=== PATIENT | male | born 1990 | race American Indian/Alaskan Native ===

== ENCOUNTER 2019-05-28 10:06 | Emergency (ER) | payer SELFPAY ==
--- NOTE | 2019-05-28 10:54 | Emergency Department Report ---
ED Psych HPI - General Chief Complaint: Psych Stated Complaint: MH Time Seen by Provider: 05/28/19 10:45 Source: patient Mode of arrival: Ambulatory - History of Present Illness Initial Comments: 28-year-old -[place] male patient with history of bipolar 1 disorder, polysubstance abuse, and psychosis presents today with complaints of suicidal and homicidal ideations and wanting to detox from ecstasy. Patient states he has a plan to use a gun or knife to hurt himself and others. He denies wanting to hurt anyone in particular. States that he uses ecstasy "every once and a while". Patient states his last use of ecstasy was yesterday. Denies any other street drugs. Patient states compliance with Seroquel, however denies following with the psychiatrist. He denies any current chest pain, shortness of breath, body aches, headache, visual/auditory hallucinations, or other complaints. Patient seen here in ED 05/23/2019 for SIElida WONG Complaint: suicidal ideation -: Sudden Associated Psychiatric Symptoms: suicidal ideation, homicidal ideation, racing thoughts Quality: constant Context: recent drug abuse Treatments Prior to Arrival: none If Self Harm: admits thoughts of, has plan - Related Data Previous Rx's Medication Instructions Recorded Last Taken Type Nicotine [Habitrol] 14 mg TD QDAY #30 patch 05/23/19 Unknown Rx QUEtiapine [SEROquel] 200 mg PO HS #60 05/23/19 Unknown Rx Allergies Allergy/AdvReac Type Severity Reaction Status Date / Time No Known Allergies Allergy Verified 05/02/18 23:09 ED Review of Systems ROS: Stated complaint: MH Other details as noted in HPI Comment: All other systems reviewed and negative Gastrointestinal: as per HPI Neurological: as per HPI Psychiatric: as per HPI ED Past Medical Hx - Past Medical History Previous Medical History?: Yes Hx Psychiatric Treatment: Yes (bipolar, adhd, drug use) Hx Asthma: Yes Additional medical history: Bi polar - Surgical History Past Surgical History?: No - Social History Smoking Status: Current Every Day Smoker Substance Use Type: Alcohol, Marijuana, Other - Medications Home Medications: Home Medications Medication Instructions Recorded Confirmed Last Taken Type Nicotine [Habitrol] 14 mg TD QDAY #30 patch 05/23/19 Unknown Rx QUEtiapine [SEROquel] 200 mg PO HS #60 05/23/19 Unknown Rx ED Physical Exam - General Limitations: No Limitations General appearance: alert, in no apparent distress - Eye Eye exam: Present: normal appearance, PERRL - ENT ENT exam: Present: mucous membranes moist - Respiratory Respiratory exam: Present: normal lung sounds bilaterally. Absent: respiratory distress, wheezes, rales, rhonchi - Cardiovascular Cardiovascular Exam: Present: regular rate, normal rhythm, normal heart sounds - GI/Abdominal GI/Abdominal exam: Present: soft, tenderness - Rectal Rectal exam: Present: deferred - Extremities Exam Extremities exam: Present: normal inspection - Back Exam Back exam: Present: normal inspection - Neurological Exam Neurological exam: Present: alert, oriented X3, normal gait - Psychiatric Psychiatric exam: Present: anxious, homicidal ideation, suicidal ideation - Skin Skin exam: Present: warm ED Course Vital Signs 05/28/19 10:14 Temperature 98.4 F Pulse Rate 97 H Respiratory 18 Rate Blood Pressure 157/91 O2 Sat by Pulse 99 Oximetry ED Medical Decision Making - Lab Data Result diagrams: 05/28/19 10:54 Lab Results 05/28/19 05/28/19 05/28/19 Range/Units 10:54 10:54 10:54 Sodium 139 (137-145) mmol/L Potassium 4.2 (3.6-5.0) mmol/L Chloride 101.4 (98-107) mmol/L Carbon Dioxide 23 (22-30) mmol/L Anion Gap 19 mmol/L BUN 9 (9-20) mg/dL Creatinine 0.9 (0.8-1.5) mg/dL Estimated GFR > 60 ml/min BUN/Creatinine Ratio 10 % Glucose 102 H (75-100) mg/dL Calcium 9.7 (8.4-10.2) mg/dL Total Creatine Kinase (55-170) units/L Urine Color (Yellow) Urine Turbidity (Clear) Urine pH (5.0-7.0) Ur Specific [place] (1.003-1.030) Urine Protein (Negative) mg/dL Urine Glucose (UA) (Negative) mg/dL Urine Ketones (Negative) mg/dL Urine Blood (Negative) Urine Nitrite (Negative) Urine Bilirubin (Negative) Urine Urobilinogen (<2.0) mg/dL Ur Leukocyte Esterase (Negative) Urine WBC (Auto) (0.0-6.0) /HPF Urine RBC (Auto) (0.0-6.0) /HPF Salicylates < 0.3 L (2.8-20.0) mg/dL Urine Opiates Screen Urine Methadone Screen Acetaminophen < 5.0 L (10.0-30.0) ug/mL Ur Barbiturates Screen Ur Phencyclidine Scrn Ur Amphetamines Screen U Benzodiazepines Scrn Urine Cocaine Screen U Marijuana (THC) Screen Drugs of Abuse Note Plasma/Serum Alcohol (0-0.07) % 05/28/19 05/28/19 05/28/19 Range/Units 10:54 10:54 11:38 Sodium (137-145) mmol/L Potassium (3.6-5.0) mmol/L Chloride (98-107) mmol/L Carbon Dioxide (22-30) mmol/L Anion Gap mmol/L BUN (9-20) mg/dL Creatinine (0.8-1.5) mg/dL Estimated GFR ml/min BUN/Creatinine Ratio % Glucose (75-100) mg/dL Calcium (8.4-10.2) mg/dL Total Creatine Kinase 509 H (55-170) units/L Urine Color Colorless (Yellow) Urine Turbidity Clear (Clear) Urine pH 8.0 H (5.0-7.0) Ur Specific [place] 1.004 (1.003-1.030) Urine Protein <15 mg/dl (Negative) mg/dL Urine Glucose (UA) Neg (Negative) mg/dL Urine Ketones Neg (Negative) mg/dL Urine Blood Neg (Negative) Urine Nitrite Neg (Negative) Urine Bilirubin Neg (Negative) Urine Urobilinogen < 2.0 (<2.0) mg/dL Ur Leukocyte Esterase Neg (Negative) Urine WBC (Auto) < 1.0 (0.0-6.0) /HPF Urine RBC (Auto) < 1.0 (0.0-6.0) /HPF Salicylates (2.8-20.0) mg/dL Urine Opiates Screen Urine Methadone Screen Acetaminophen (10.0-30.0) ug/mL Ur Barbiturates Screen Ur Phencyclidine Scrn Ur Amphetamines Screen U Benzodiazepines Scrn Urine Cocaine Screen U Marijuana (THC) Screen Drugs of Abuse Note Plasma/Serum Alcohol < 0.01 (0-0.07) % 05/28/19 Range/Units 11:38 Sodium (137-145) mmol/L Potassium (3.6-5.0) mmol/L Chloride (98-107) mmol/L Carbon Dioxide (22-30) mmol/L Anion Gap mmol/L BUN (9-20) mg/dL Creatinine (0.8-1.5) mg/dL Estimated GFR ml/min BUN/Creatinine Ratio % Glucose (75-100) mg/dL Calcium (8.4-10.2) mg/dL Total Creatine Kinase (55-170) units/L Urine Color (Yellow) Urine Turbidity (Clear) Urine pH (5.0-7.0) Ur Specific [place] (1.003-1.030) Urine Protein (Negative) mg/dL Urine Glucose (UA) (Negative) mg/dL Urine Ketones (Negative) mg/dL Urine Blood (Negative) Urine Nitrite (Negative) Urine Bilirubin (Negative) Urine Urobilinogen (<2.0) mg/dL Ur Leukocyte Esterase (Negative) Urine WBC (Auto) (0.0-6.0) /HPF Urine RBC (Auto) (0.0-6.0) /HPF Salicylates (2.8-20.0) mg/dL Urine Opiates Screen Presumptive negative Urine Methadone Screen Presumptive negative Acetaminophen (10.0-30.0) ug/mL Ur Barbiturates Screen Presumptive negative Ur Phencyclidine Scrn Presumptive negative Ur Amphetamines Screen Presumptive negative U Benzodiazepines Scrn Presumptive negative Urine Cocaine Screen Presumptive positive U Marijuana (THC) Screen Presumptive negative Drugs of Abuse Note Disclamer Plasma/Serum Alcohol (0-0.07) % - Medical Decision Making Patient here for SI and HI. Patient placed on a 1013. Patient awaiting assessment from psychiatrist. Vitals WNL. Mild increase in creatinine kinase at 500, labs otherwise without acute findings. Nursing instruction place to encourage patient to orally resuscitate with water. Patient is medically stable for treatment incensed outpatient psych facility. Critical care attestation.: If time is entered above; I have spent that time in minutes in the direct care of this critically ill patient, excluding procedure time. ED Disposition Clinical Impression: Suicidal ideations, Polysubstance (excluding opioids) dependence, Homicidal ideations Disposition: DC/TX-65 PSY HOSP/PSY UNIT Is pt being admited?: No Condition: Stable Referrals: PRIMARY CARE, [Primary Care Provider] - 3-5 Days
[2019-05-28 11:32] LABS: BUN/Creatinine Ratio 10; Blood Urea Nitrogen 9 mg/dL (9-20); Calcium 9.7 mg/dL (8.4-10.2); Hemolysis Index 3
[2019-05-28 12:21] LABS: Bilirubin,Urine NEG (Negative); Blood,Urine NEG (Negative); Color,Urine Colorless (Yellow); Protein,Urine <15 mg/dL mg/dL (Negative); RBC,Urine < 1.0 /HPF (0.0-6.0); Urobilinogen,Urine < 2.0 mg/dL (<2.0); WBC,Urine < 1.0 /HPF (0.0-6.0)
[2019-05-28 12:24] LABS: Amphetamine Screen,Urine PRESUMPTIVE NEGATIVE; Benzodiazepines Screen,Urine PRESUMPTIVE NEGATIVE; Cannabinoid Screen,Urine PRESUMPTIVE NEGATIVE; Methadone Screen,Urine PRESUMPTIVE NEGATIVE; Opiate Screen,Urine PRESUMPTIVE NEGATIVE
[2019-05-28 12:43] LABS: Cocaine Screen,Urine PRESUMPTIVE POSITIVE
[2019-05-28 23:23] LABS: Basophils % (Auto) 0.6 % (0.0-1.8); Eosinophils # (Auto) 0.2 K/mm3 (0.0-0.4); Eosinophils % (Auto) 3.3 % (0.0-4.3); Hematocrit 42.5 % (35.5-45.6); Hemoglobin 14.1 gm/dl (11.8-15.2); Lymphocytes % (Auto) 26.7 % (13.4-35.0); Mean Corpuscular HGB Conc 33 % (32-34); Mean Corpuscular Volume 94 fl (84-94); Monocytes # (Auto) 1.1 K/mm3 (0.0-0.8); Monocytes % (Auto) 14.1 % (0.0-7.3); Platelet Count 309 K/mm3 (140-440); Red Blood Count 4.54 M/mm3 (3.65-5.03); Red Cell Distribution Width 13.9 % (13.2-15.2)
--- NOTE | 2019-05-29 17:19 | Consultation ---
History of Present Illness - Reason for Consult Consult date: 05/29/19 Reason for consult: psychiatric evaluation - Chief Complaint Chief complaint: "I'm suicidal and homicidal." - History of Present Psychiatric Illness Patient is a 28 year old male that presents to the emergency room after the ingestion of ecstasy. Patient has a PPHx of Bipolar Disorder with psychotic features. HE reports suicidal and homicidal ideation and says he wants to retaliate against others. He reports using cocaine and ecstasy. CK is 509. He is out of seroquel and says he wants to restart it. He attributes his mood and psychotic symptoms to drug use. Per previous record (reports no changes): Current Psychiatric Medications: Seroquel, Prozac, and Benadryl. Current dosages unknown. Past Psychiatric History: Bipolar ( Age 13), ADHD ( Age 14); More than 8 previous inpatient psychiatric hospitalizations; No outpatient psychiatrist; 2 previous suicide attempts ( cutting self with razor during incarceration); Patient has multiple incarcerations. Past Psychiatric Medication Trials: Seroquel, Zyprexa Trazodone, Depakote, Risperdal, and Zoloft. History of Trauma/Abuse: Patient denies trauma. Patient denies sexual, physical, and mental abuse. Drug/Alcohol Abuse History: Marijuana- amount/frequency- varies/daily, method- "I smoke blunts", last use- 05/19/19, first use- age 13; Esctasy?metha mphetamine- amount/frequency-varies, method - "by mouth", last use- 05/19/19, first use- age 13. Social History: 10th grade- highest level of education; Unemployed; SSI $ 745; Homeless; Single; 2 children ( 1 son, 1 daughter) Family History: Dad- " ADHD" Current: Mental Status Exam - Exam Narrative exam: Mental Status Exam: Appearance: calm Behavior: regular eye contact Speech: rapid rate and regular tone Mood: irritable Affect: congruent to mood Thought Process: tangential Thought Content: SI/HI, paranoia. denies AVH Motor Activity: ambulatory Cognition: A/O x 3 Insight: vague Judgment: poor Assessment and plan: Impression: Unspecified Mood DO with psy features. Substance Use DO (cocaine and ecstasy) DDx: Substance Induced Mood/Psychotic DO Recommendation/Plan: 1. Continue 1013. 2. Restart Seroquel 200mg po QHS mood/psychosis . Discussed possible metabolic side effects of Seroquel with the patient, he verbalized understanding. 3. Hydration Disposition: Patient will be referred to inpatient psychiatric services. Will staff with Dr. Candy Botello. Medications and Allergies Allergies Allergy/AdvReac Type Severity Reaction Status Date / Time No Known Allergies Allergy Verified 05/02/18 23:09 Home Medications Medication Instructions Recorded Confirmed Last Taken Type Nicotine [Habitrol] 14 mg TD QDAY #30 patch 05/23/19 05/28/19 Unknown Rx QUEtiapine [SEROquel] 200 mg PO HS #60 05/23/19 05/28/19 Unknown Rx Mental Status Exam - Vital signs Last Vital Signs Temp 97.5 F L 05/29/19 10:51 Pulse 77 05/29/19 10:51 Resp 18 05/29/19 01:10 BP 128/90 05/29/19 10:51 Pulse Ox 96 05/29/19 10:51 Results Result Diagrams: 05/28/19 22:50 05/28/19 10:54 Abnormal lab results 05/28/19 Range/Units 22:50 [place] % (Auto) 14.1 H (0.0-7.3) % [place] # 1.1 H (0.0-0.8) K/mm3 All other labs normal.
[2019-05-30] MEDS ORDERED: QUEtiapine 100 MG TAB PO SCH (00:49)
[2019-05-30 08:18] VITALS: BP 124/86
--- NOTE | 2019-05-30 09:05 | Progress Note ---
Subjective - Reason for Consult Consult date: 05/30/19 Reason for consult: Psychiatry Follow-up - Chief Complaint Chief complaint: "I am okay" 28 year old male that presented to the ER for substance abuse. This patient is known to me. Today the patient was calm and cooperative during the assessment. He stated that he made "bad choice" by using cocaine prior to his arrival to the ER. He stated that he will follow up with rehab services once discharged. The patient denies SI/HI's and AVH's. i Mental Status Exam - Vital signs Last Vital Signs Temp 98.3 F 05/30/19 07:00 Pulse 78 05/30/19 07:00 Resp 13 05/30/19 07:00 BP 124/86 05/30/19 07:00 Pulse Ox 97 05/30/19 07:00 - Exam Narrative exam: MSE: Appearance: calm, cooperative Behavior: regular eye contact Speech: regular rate and tone Mood: "okay" Affect: congruent to mood Thought Process: logical Thought Content: denies SI/HI's and AVH's Motor Activity: lying in bed Cognition: A/O x 3 Insight: fair Judgment: fair Assessment and Plan Impression: Unspecified Mood DO with psy features. Substance Use DO (cocaine). No overt psychosis with the patient. Today the patient was calm and cooperative during the assessment. The patient is no threat to self. DDx: Substance Induced Mood DO Recommendations/Plan: Rescind 1013. Continue Seroquel 200 mg PO HS for mood/psychosis. Discussed possible metabolic side effects of Seroquel with the patient, he verbalized understanding. he verbalized understanding. Discussed the importance to abstain from recreational drug use with the patient, he verbalized understanding. Dipso: The patient can follow up with [facility] for outpatient psy/rehab services. Will staff with Dr Candy Botello.
--- NOTE | 2019-05-30 10:51 | Emergency Department Report ---
Blank Doc - Documentation Documentation: I was asked by the psychiatric team to provide discharge paperwork for this pat ient after they decided to rescind the 1013. I spoke with the patient who does deny any suicidal or homicidal ideations. At the time of my examination/conversation, the patient is awake, oriented, calm and appropriate. He has been provided outpatient psychiatric referrals and a prescription for his Seroquel for the next 2 weeks. He has been instructed to return to the emergency Department with any worsening of his symptoms, thoughts of harming himself or others, or with any acute distress.
== END 2019-05-30 11:15 | disposition home or self-care (01) ==
LOC: EDBD → EEVIPCON 10:06 → ED 10:06 → MERGE 10:06 → ED 05-30 11:15
DX: F39 Unspecified mood [affective] disorder (principal); R45.851 Suicidal ideations; R45.850 Homicidal ideations; F31.9 Bipolar disorder, unspecified; F17.200 Nicotine dependence, unspecified, uncomplicated; F12.10 Cannabis abuse, uncomplicated
CPT/HCPCS: 36415; 80048; 80307; 80320; 81001; 82550; 85025; G0480

== ENCOUNTER 2019-06-18 01:24 | Emergency (ER) | payer SELFPAY ==
--- NOTE | 2019-06-18 02:59 | Emergency Department Report ---
ED Psych HPI - General Chief Complaint: Psych Stated Complaint: SUICIDAL THOUGHTS Time Seen by Provider: 06/18/19 02:06 Source: patient Mode of arrival: Ambulatory - History of Present Illness Initial Comments: 28-year-old male, history of bipolar disorder, presents to ED with report of suicidal or homicidal ideations. Patient states he is not having any homicidal ideations against anyone in particular. As far as suicidal ideations, patient reports plan to overdose or cut himself. Patient reports alcohol use, denies drug use. States he is currently not taking his psychiatric medications. MD Complaint: suicidal ideation -: days(s) (2) Associated Psychiatric Symptoms: suicidal ideation, homicidal ideation History of same: Yes Quality: constant Improves With: none Worsens With: none Context: not taking psychiatric Associated Symptoms: denies other symptoms Treatments Prior to Arrival: none If Self Harm: has plan - Related Data Previous Rx's Medication Instructions Recorded Last Taken Type Nicotine [Habitrol] 14 mg TD QDAY #30 patch 05/23/19 Unknown Rx QUEtiapine [SEROquel] 200 mg PO HS #60 05/23/19 Unknown Rx Allergies Allergy/AdvReac Type Severity Reaction Status Date / Time No Known Allergies Allergy Unverified 05/30/19 07:49 ED Review of Systems ROS: Stated complaint: SUICIDAL THOUGHTS Other details as noted in HPI Comment: All other systems reviewed and negative Psychiatric: homicidal thoughts, suicidal thoughts ED Past Medical Hx - Past Medical History Previous Medical History?: Yes Hx Psychiatric Treatment: Yes (bipolar, adhd, drug use) Hx Asthma: Yes Additional medical history: Bi polar - Surgical History Past Surgical History?: No - Social History Smoking Status: Current Every Day Smoker Substance Use Type: Marijuana - Medications Home Medications: Home Medications Medication Instructions Recorded Confirmed Last Taken Type Nicotine [Habitrol] 14 mg TD QDAY #30 patch 05/23/19 06/18/19 Unknown Rx QUEtiapine [SEROquel] 200 mg PO HS #60 05/23/19 06/18/19 Unknown Rx ED Physical Exam - General Limitations: No Limitations General appearance: alert, in no apparent distress - Head Head exam: Present: atraumatic, normocephalic - Eye Eye exam: Present: normal appearance - ENT ENT exam: Present: mucous membranes moist - Neck Neck exam: Present: normal inspection - Respiratory Respiratory exam: Present: normal lung sounds bilaterally. Absent: respiratory distress - Cardiovascular Cardiovascular Exam: Present: regular rate, normal rhythm - GI/Abdominal GI/Abdominal exam: Absent: distended - Extremities Exam Extremities exam: Present: normal inspection - Neurological Exam Neurological exam: Present: alert, oriented X3 - Psychiatric Psychiatric exam: Present: normal affect, normal mood - Skin Skin exam: Present: warm, dry, intact, normal color ED Course Vital Signs 06/18/19 06/18/19 06/18/19 01:45 08:23 14:33 Temperature 98.3 F 98.4 F 97.4 F L Pulse Rate 88 88 84 Respiratory 20 18 16 Rate Blood Pressure 134/94 Blood Pressure 123/77 116/87 [Right] O2 Sat by Pulse 97 99 100 Oximetry 06/18/19 06/19/19 06/19/19 19:35 07:00 13:00 Temperature 98.4 F 98.0 F 97.8 F Pulse Rate 87 87 89 Respiratory 18 18 18 Rate Blood Pressure Blood Pressure 135/89 139/62 117/82 [Right] O2 Sat by Pulse 98 96 Oximetry 06/19/19 06/19/19 06/19/19 13:10 19:15 21:29 Temperature 97.8 F 98.6 F Pulse Rate 89 83 Respiratory 18 18 18 Rate Blood Pressure Blood Pressure 117/82 112/82 [Right] O2 Sat by Pulse 96 96 Oximetry 06/20/19 06/20/19 02:11 08:34 Temperature 97.9 F 98.1 F Pulse Rate 76 90 Respiratory 18 Rate Blood Pressure Blood Pressure 118/83 134/90 [Right] O2 Sat by Pulse 98 96 Oximetry ED Medical Decision Making - Lab Data Result diagrams: 06/18/19 02:11 06/18/19 02:11 - Medical Decision Making 28-year-old male presents to ED with suicidal and homicidal ideations. Patient placed on a 1013. Labs are unremarkable. Patient is medically clear for mental health evaluation. Will dispo per psych - Differential Diagnosis bipolar, suicidal ideations Critical care attestation.: If time is entered above; I have spent that time in minutes in the direct care of this critically ill patient, excluding procedure time. ED Disposition Clinical Impression: Bipolar disorder, Alcohol intoxication Disposition: DC-01 TO HOME OR SELFCARE Is pt being admited?: No Condition: Stable Instructions: Bipolar Disorder (ED) Referrals: [facility] [Provider Group] - 3-5 Days [facility] [Outside] - 24 Hours
[2019-06-18 03:20] LABS: Basophils # (Auto) 0.1 K/mm3 (0.0-0.1); Basophils % (Auto) 1.2 % (0.0-1.8); Eosinophils # (Auto) 0.2 K/mm3 (0.0-0.4); Eosinophils % (Auto) 1.8 % (0.0-4.3); Hematocrit 46.2 % (35.5-45.6); Hemoglobin 15.3 gm/dl (11.8-15.2); Lymphocytes # (Auto) 1.8 K/mm3 (1.2-5.4); Lymphocytes % (Auto) 21.9 % (13.4-35.0); Mean Corpuscular HGB Conc 33 % (32-34); Mean Corpuscular Volume 95 fl (84-94); Monocytes # (Auto) 0.9 K/mm3 (0.0-0.8); Monocytes % (Auto) 10.3 % (0.0-7.3); Platelet Count 235 K/mm3 (140-440); Red Blood Count 4.89 M/mm3 (3.65-5.03); Red Cell Distribution Width 13.8 % (13.2-15.2)
[2019-06-18 03:33] LABS: BUN/Creatinine Ratio 9; Blood Urea Nitrogen 9 mg/dL (9-20); Calcium 9.6 mg/dL (8.4-10.2); Hemolysis Index 6
[2019-06-18 05:40] LABS: Bilirubin,Urine NEG (Negative); Blood,Urine NEG (Negative); Color,Urine Straw (Yellow); Hyaline Casts,Urine 1 /LPF; Protein,Urine <15 mg/dL mg/dL (Negative); Urobilinogen,Urine < 2.0 mg/dL (<2.0); WBC,Urine < 1.0 /HPF (0.0-6.0)
[2019-06-18 05:47] LABS: Amphetamine Screen,Urine PRESUMPTIVE NEGATIVE; Benzodiazepines Screen,Urine PRESUMPTIVE NEGATIVE; Cannabinoid Screen,Urine PRESUMPTIVE NEGATIVE; Cocaine Screen,Urine PRESUMPTIVE NEGATIVE; Methadone Screen,Urine PRESUMPTIVE NEGATIVE; Opiate Screen,Urine PRESUMPTIVE NEGATIVE
--- NOTE | 2019-06-18 21:08 | Consultation ---
History of Present Illness - Reason for Consult Consult date: 06/18/19 Reason for consult: psychiatric evaluation - History of Present Psychiatric Illness Patient is a 28 year old male that presents to the emergency room stating he is suicidal with a plan to overdose or cut himself. His alcohol level was 0.12. Patient has a PPHx of Bipolar Disorder with psychotic features. We discussed his repeated visits. He reports SSI has started and has an appo intment on Thursday. He says he is trying to find a place to stay until Thursday. He says he does not want to stay past Thursday am. Per previous record (reports no changes): Current Psychiatric Medications: Seroquel, Prozac, and Benadryl. Current dosages unknown. Past Psychiatric History: Bipolar ( Age 13), ADHD ( Age 14); More than 8 previous inpatient psychiatric hospitalizations; No outpatient psychiatrist; 2 previous suicide attempts ( cutting self with razor during incarceration); Patient has multiple incarcerations. Past Psychiatric Medication Trials: Seroquel, Zyprexa Trazodone, Depakote, Risperdal, and Zoloft. History of Trauma/Abuse: Patient denies trauma. Patient denies sexual, physical, and mental abuse. Drug/Alcohol Abuse History: Marijuana- amount/frequency- varies/daily, method- "I smoke blunts", last use- 05/19/19, first use- age 13; Esctasy?met hamphetamine- amount/frequency-varies, method - "by mouth", last use- 05/19/19, first use- age 13. Social History: 10th grade- highest level of education; Unemployed; SSI $ 745; Homeless; Single; 2 children ( 1 son, 1 daughter) Family History: Dad- " ADHD" Current: Mental Status Exam - Exam Narrative exam: Mental Status Exam: Appearance: calm Behavior: regular eye contact Speech: rapid rate and regular tone Mood: irritable Affect: congruent to mood Thought Process: tangential Thought Content: SI/HI, paranoia. denies AVH Motor Activity: ambulatory Cognition: A/O x 3 Insight: vague Judgment: poor Assessment and plan: Impression: Unspecified Mood DO with psy features. Substance Use DO (cocaine and ecstasy) DDx: Substance Induced Mood/Psychotic DO Recommendation/Plan: 1. Continue 1013. 2. Restart Seroquel 200mg po QHS mood/psychosis . Discussed possible metabolic side effects of Seroquel with the patient, he verbalized understanding. Disposition: reassess in 24 [address] staff with Dr[address] Canyd Botello. Medications and Allergies Allergies Allergy/AdvReac Type Severity Reaction Status Date / Time No Known Allergies Allergy Unverified 05/30/19 07:49 Home Medications Medication Instructions Recorded Confirmed Last Taken Type Nicotine [Habitrol] 14 mg TD QDAY #30 patch 05/23/19 06/18/19 Unknown Rx QUEtiapine [SEROquel] 200 mg PO HS #60 05/23/19 06/18/19 Unknown Rx Mental Status Exam - Vital signs Last Vital Signs Temp 97.4 F L 06/18/19 14:33 Pulse 84 06/18/19 14:33 Resp 16 06/18/19 14:33 BP 116/87 06/18/19 14:33 Pulse Ox 100 06/18/19 14:33 Results Result Diagrams: 06/18/19 02:11 06/18/19 02:11 Abnormal lab results 06/18/19 06/18/19 06/18/19 Range/Units 02:11 02:11 02:11 Hgb (11.8-15.2) gm/dl Hct (35.5-45.6) % MCV (84-94) fl [place] % (Auto) (0.0-7.3) % [place] # (0.0-0.8) K/mm3 Salicylates < 0.3 L (2.8-20.0) mg/dL Acetaminophen < 5.0 L (10.0-30.0) ug/mL Plasma/Serum Alcohol 0.12 H (0-0.07) % 06/18/19 Range/Units 02:11 Hgb 15.3 H (11.8-15.2) gm/dl Hct 46.2 H (35.5-45.6) % MCV 95 H (84-94) fl [place] % (Auto) 10.3 H (0.0-7.3) % [place] # 0.9 H (0.0-0.8) K/mm3 Salicylates (2.8-20.0) mg/dL Acetaminophen (10.0-30.0) ug/mL Plasma/Serum Alcohol (0-0.07) % All other labs normal.
[2019-06-18] MEDS ORDERED: QUEtiapine 200 MG TAB ONE (21:39)
[2019-06-18] MEDS: QUEtiapine 200 MG TAB PO SCH (21:58)
--- NOTE | 2019-06-19 21:11 | Progress Note ---
Subjective - Reason for Consult Consult date: 06/19/19 Reason for consult: follow up - Chief Complaint Chief complaint: Patient is a 28 year old male that presented to the emergency room stating he is suicidal with a plan to overdose or cut himself. His alcohol level was 0.12. Patient has a PPHx of Bipolar Disorder with psychotic features. We discussed his repeated visits. He reports SSI has started and has an appointment on Thursday. He says he is trying to find a place to stay until Thursday. He says he does not want to stay past Thursday am. He denies suicidal or homicidal ideation. He says he is trying to get himself straight and does not plan to hurt himself. Current: Mental Status Exam - Exam Narrative exam: Mental Status Exam: Appearance: calm Behavior: regular eye contact Speech: rapid rate and regular tone Mood: irritable Affect: congruent to mood Thought Process: tangential Thought Content: denies SI/HI, paranoia. denies AVH Motor Activity: ambulatory Cognition: A/O x 3 Insight: vague Judgment: poor Assessment and plan: Impression: Unspecified Mood DO with psy features. Substance Use DO (cocaine and ecstasy) DDx: Substance Induced Mood/Psychotic DO Likely he reports SI on arrival for secondary gain. Recommendation/Plan: 1. Continue 1013. 2. continue Seroquel 200mg po QHS mood/psychosis . Discussed possible metabolic side effects of Seroquel with the patient, he verbalized understanding. Disposition: reassess in 24 hours and will rescind if appropriate. Will staff with Dr. Candy Botello. Mental Status Exam - Vital signs Last Vital Signs Temp 98.6 F 06/19/19 19:15 Pulse 83 06/19/19 19:15 Resp 18 06/19/19 19:15 BP 112/82 06/19/19 19:15 Pulse Ox 96 06/19/19 19:15
[2019-06-19] MEDS: QUEtiapine 200 MG TAB PO SCH (22:49)
[2019-06-20 08:34] VITALS: BP 134/90
--- NOTE | 2019-06-20 08:47 | Progress Note ---
Subjective - Reason for Consult Consult date: 06/20/19 Reason for consult: Psychiatry Follow-up - Chief Complaint Chief complaint: "I am good" 28 year old male that presented to the emergency room stating he is suicidal with a plan to overdose or cut himself. This patient is known to me. He stated that he is well and want to leave today. He stated that he was in his "feelings" when he arrived to the ER. He stated that he will follow up rehab services once discharged. He denies SI/HI's and AVH's. He denies any side effects from his medication. Mental Status Exam - Vital signs Last Vital Signs Temp 98.1 F 06/20/19 08:34 Pulse 90 06/20/19 08:34 Resp 18 06/20/19 02:11 BP 134/90 06/20/19 08:34 Pulse Ox 96 06/20/19 08:34 - Exam Narrative exam: MSE: Appearance: calm, cooperative Behavior: regular eye contact Speech: regular rate and tone Mood: "okay" Affect: congruent to mood Thought Process: linear Thought Content: denies SI/HI's and AVH's Motor Activity: lying in bed Cognition: A/O x 3 Insight: fair Judgment: fair Assessment and Plan Impression: Unspecified Mood DO. Alcohol Intoxication on arrival to the ER. Today the patient was calm and cooperative during the assessment. The patient is no threat to self. No acute withdrawals noted (etoh). DDx: Alcohol Induced Mood DO Recommendations/Plan: Rescind 1013. Continue Seroquel 200 mg PO HS for mood/psychosis. Discussed possible metabolic side effects of Seroquel with the patient, he verbalized understanding. Discussed the importance to abstain from excessive alcohol consumption (etoh), he verbalized understanding. Dipso: The patient can follow up with [facility] for outpatient psy/rehab services. Staffed with Dr Candy Botello.
== END 2019-06-20 11:50 | disposition home or self-care (01) ==
LOC: ED 01:24
DX: F31.9 Bipolar disorder, unspecified (principal); R45.851 Suicidal ideations; R45.850 Homicidal ideations; J45.909 Unspecified asthma, uncomplicated; F17.200 Nicotine dependence, unspecified, uncomplicated; F12.10 Cannabis abuse, uncomplicated
CPT/HCPCS: 36415; 80048; 80307; 80320; 81001; 85025; G0480

== ENCOUNTER 2020-04-05 02:45 | Emergency (ER) | payer MEDICAID ==
[2020-04-05 05:23] LABS: Basophils # (Auto) 0.1 K/mm3 (0.0-0.1); Basophils % (Auto) 0.8 % (0.0-1.8); Eosinophils % (Auto) 0.1 % (0.0-4.3); Hematocrit 41.2 % (35.5-45.6); Hemoglobin 14.4 gm/dl (11.8-15.2); Lymphocytes # (Auto) 0.9 K/mm3 (1.2-5.4); Lymphocytes % (Auto) 7.6 % (13.4-35.0); Mean Corpuscular HGB Conc 35 % (32-34); Mean Corpuscular Volume 92 fl (84-94); Monocytes # (Auto) 1.1 K/mm3 (0.0-0.8); Monocytes % (Auto) 9.3 % (0.0-7.3); Platelet Count 281 K/mm3 (140-440); Red Blood Count 4.49 M/mm3 (3.65-5.03); Red Cell Distribution Width 14.1 % (13.2-15.2)
[2020-04-05 05:38] LABS: BUN/Creatinine Ratio 11; Blood Urea Nitrogen 17 mg/dL (9-20); Calcium 10.7 mg/dL (8.4-10.2); Hemolysis Index 6
--- NOTE | 2020-04-05 07:05 | Emergency Department Report ---
<KARAN CONLEY - Last Filed: 04/06/20 08:22> ED Psych HPI - General Chief Complaint: Psych Stated Complaint: MH EVAL/SUICIDAL Time Seen by Provider: 04/05/20 06:52 - Related Data Previous Rx's Medication Instructions Recorded Last Taken Type Nicotine [Habitrol] 14 mg TD QDAY #30 patch 05/23/19 Unknown Rx QUEtiapine [SEROquel] 200 mg PO HS #60 05/23/19 Unknown Rx OLANzapine [ZyPREXA] 10 mg PO DAILY #30 tablet 03/18/20 Unknown Rx Valproic Acid [Depakene] 500 mg PO BID #60 capsule 04/09/20 Unknown Rx Allergies Allergy/AdvReac Type Severity Reaction Status Date / Time No Known Allergies Allergy Unverified 05/30/19 07:49 ED Past Medical Hx - Medications Home Medications: Home Medications Medication Instructions Recorded Confirmed Last Taken Type Nicotine [Habitrol] 14 mg TD QDAY #30 patch 05/23/19 06/18/19 Unknown Rx QUEtiapine [SEROquel] 200 mg PO HS #60 05/23/19 06/18/19 Unknown Rx OLANzapine [ZyPREXA] 10 mg PO DAILY #30 tablet 03/18/20 Unknown Rx Valproic Acid [Depakene] 500 mg PO BID #60 capsule 04/09/20 Unknown Rx ED Course - Reevaluation(s) Reevaluation #1: 04/06/20 08:22 [id number] evaluation is performed. Patient required initiation of seclusion for aggressive behavior. The patient is agitated, and verbally belligerent, does not respond to verbal de-escalation techniques, or show of force. As needed haloperidol and Ativan are ordered. Upon my initial evaluation, the patient is resting comfortably, speaking in full sentences, moving 4 extremities, and protecting his airway. Seclusion orders are initiated, as needed medications ordered, pending psychiatric placement. ED Medical Decision Making - Lab Data Result diagrams: 04/05/20 05:04 04/05/20 05:04 ED Disposition Clinical Impression: Bipolar disorder, Psychosis, Polysubstance (excluding opioids) dependence Disposition: DC-01 TO HOME OR SELFCARE Condition: Stable Additional Instructions: Professional and Agency Contacts To help [facility](23/02) [place] Crisis Line: Suicide Prevention Line: Crisis Text Line: Text START to [phone] Emergency: 911 Outpatient [facility] Resources: LAVINIA: [facility] [address] [place], [place] [address] [place]EDD[place]: [facility] - [address] [place] [address] Thursday thru Thursday - 8am - 5pm RAUL: [facility] Address: [address] [place] [address] Thursday thru Thursday- 7am-2pm [facility] Address: [address] [place] [address] Thursday thru Thursday: 8:30AM-5PM Prescriptions: Valproic Acid [Depakene] 500 mg PO BID #60 capsule Referrals: PRIMARY CARE, [Primary Care Provider] - 3-5 Days <SYLVESTER LEIVA - Last Filed: 04/09/20 16:06> ED Psych HPI - General Source: patient Mode of arrival: Ambulatory Limitations: No Limitations - History of Present Illness Initial Comments: CC: "I feeling homicidal, suicidal. I feel like a sniper is out to get me. HPI: Mr. Burton is a 29 yo male with hx of bipolar disorder, ADHD, polysubstance abuse who presents with "suicidal" and "homicidal" thoughts. He states that "a sniper is out to get me". He informed triage nurse that he planned to use a knife or gun to hurt people and himself. He has not taking mediction to address mental health in quite some time. Patient was evaluated for similar concerns two weeks ago in this ER. He was discharged with recommendations for outpatient treatment and prescription for medication. Previous documentation in EMR documents that patient has hx of schizophrenia. Complaint: suicidal ideation, other (homicidal, delusion that sniper is "out to get me") -: Gradual, week(s) (several weeks) Associated Psychiatric Symptoms: suicidal ideation, homicidal ideation, delusions History of same: Yes Quality: constant Improves With: medication Context: recent drug abuse, not taking psychiatric Associated Symptoms: denies other symptoms Treatments Prior to Arrival: none If Self Harm: admits thoughts of, has plan ED Review of Systems ROS: Stated complaint: MH EVAL/SUICIDAL Other details as noted in HPI Comment: All other systems reviewed and negative Constitutional: denies: fever, malaise Respiratory: denies: cough, shortness of breath Cardiovascular: denies: chest pain Gastrointestinal: denies: abdominal pain, nausea, vomiting Psychiatric: homicidal thoughts, suicidal thoughts ED Past Medical Hx - Past Medical History Previous Medical History?: Yes Hx Psychiatric Treatment: Yes (bipolar, adhd, drug use) Hx Asthma: Yes Additional medical history: Bi polar - Surgical History Past Surgical History?: No - Social History Smoking Status: Never Smoker Substance Use Type: None ED Physical Exam - General Limitations: Altered Mental Status General appearance: alert, in no apparent distress, other (flat, calm, cooperative) - Head Head exam: Present: atraumatic, normocephalic - Eye Eye exam: Present: normal appearance - ENT ENT exam: Present: mucous membranes moist - Neck Neck exam: Present: normal inspection, full ROM - Respiratory Respiratory exam: Present: normal lung sounds bilaterally. Absent: respiratory distress, wheezes, rales, rhonchi - Cardiovascular Cardiovascular Exam: Present: regular rate, normal rhythm, normal heart sounds. Absent: systolic murmur, diastolic murmur, rubs, gallop - GI/Abdominal GI/Abdominal exam: Present: soft, normal bowel sounds. Absent: distended, tenderness, guarding, rebound - Extremities Exam Extremities exam: Present: normal inspection - Neurological Exam Neurological exam: Present: alert, oriented X3 - Psychiatric Psychiatric exam: Present: depressed, flat affect, homicidal ideation - Skin Skin exam: Present: warm, dry, intact, normal color. Absent: rash ED Course Vital Signs 04/05/20 04/05/20 04/05/20 04:43 05:07 22:05 Temperature 98.7 F 98.1 F 97.8 F Pulse Rate 128 H 112 H 83 Respiratory 20 19 18 Rate Blood Pressure 173/99 Blood Pressure 148/96 106/56 [Left] O2 Sat by Pulse 94 95 97 Oximetry 04/06/20 04/07/20 04/07/20 20:08 01:00 19:26 Temperature 97.9 F 98.6 F Pulse Rate 81 76 Respiratory 20 16 18 Rate Blood Pressure Blood Pressure 100/58 110/59 [Left] O2 Sat by Pulse 99 98 Oximetry 04/07/20 04/08/20 04/09/20 19:44 19:00 10:25 Temperature 98.0 F 97.4 F L 98.2 F Pulse Rate 74 100 H 76 Respiratory 18 18 18 Rate Blood Pressure Blood Pressure 132/86 137/85 134/77 [Left] O2 Sat by Pulse 98 99 96 Oximetry ED Medical Decision Making - Lab Data Result diagrams: 04/08/20 18:20 04/05/20 05:04 Laboratory Results - last 24 hr 04/05/20 04/05/20 04/05/20 05:04 05:04 05:04 WBC RBC Hgb Hct MCV MCH MCHC RDW Plt Count Lymph % (Auto) [place] % (Auto) Eos % (Auto) Baso % (Auto) Lymph # [place] # Eos # Baso # Seg Neutrophils % Seg Neutrophils # Sodium 139 Potassium 4.3 Chloride 98.4 Carbon Dioxide 20 L Anion Gap 25 BUN 17 Creatinine 1.6 H Estimated GFR > 60 BUN/Creatinine Ratio 11 Glucose 109 H Calcium 10.7 H Salicylates < 0.3 L Acetaminophen 5.0 L Plasma/Serum Alcohol 04/05/20 04/05/20 05:04 05:04 WBC 12.3 H RBC 4.49 Hgb 14.4 Hct 41.2 MCV 92 MCH 32 MCHC 35 H RDW 14.1 Plt Count 281 Lymph % (Auto) 7.6 L [place] % (Auto) 9.3 H Eos % (Auto) 0.1 Baso % (Auto) 0.8 Lymph # 0.9 L [place] # 1.1 H Eos # 0.0 Baso # 0.1 Seg Neutrophils % 82.2 H Seg Neutrophils # 10.1 H Sodium Potassium Chloride Carbon Dioxide Anion Gap BUN Creatinine Estimated GFR BUN/Creatinine Ratio Glucose Calcium Salicylates Acetaminophen Plasma/Serum Alcohol < 0.01 - Medical Decision Making Mr. Burton has hx of bipolar disorder, ADHD, polysubstance abuse. Previous documentation in EMR suggests patient has paranoid schizophrenia. I suspect patient does have this diagnosis or possibly drug-induced psychosis. Currently he is calm, cooperative with flat affect. He has poor insight. He has not been compliant with outpatient therapy. He is currently not able to ensure his safety or the safety of others. Involuntary hold indicated. I have completed 1013 form. Mr. Burton is medically clear for psychiatric care. I have reviewed the labs obtained. No indication of acute medical condition which needs treatment or stablization beyond current mental health condition. After psychiatric care provided in the emergency department over the course of 4 days, patient is now stable for discharge after extensive care was provided by our psychiatric team. Patient was provided outpatient resources. Critical care attestation.: If time is entered above; I have spent that time in minutes in the direct care of this critically ill patient, excluding procedure time. ED Disposition Is pt being admited?: No Does the pt Need Aspirin: No
[2020-04-05 07:25] LABS: Bilirubin,Urine NEG (Negative); Blood,Urine NEG (Negative); Color,Urine Yellow (Yellow); Hyaline Casts,Urine 24 /LPF; Mucus,Urine 1+ /HPF
[2020-04-05 08:02] LABS: Benzodiazepines Screen,Urine Negative; Cannabinoid Screen,Urine Negative; Methadone Screen,Urine Negative; Opiate Screen,Urine Negative
[2020-04-05 08:18] LABS: Amphetamine Screen,Urine Positive; Cocaine Screen,Urine Positive
[2020-04-05] MEDS ORDERED: ZIPRASIDONE MESYLATE 20 MG VIAL IM ONE (16:18)
[2020-04-05 19:20] LABS: Hepatitis B Surface Antigen Non-Reactive (Negative); Hepatitis C Virus Antibody Non-Reactive (NonReactive)
[2020-04-06] MEDS ORDERED: HALOPERIDOL LACTATE 5 MG/1 ML INJ IM PRN (08:18)
[2020-04-06] MEDS ORDERED: LORazepam 2 MG/ML VIAL IM PRN (08:18)
--- NOTE | 2020-04-06 09:26 | Consultation ---
History of Present Illness - Reason for Consult Consult date: 04/06/20 Reason for consult: MHE Requesting physician: SYLVESTER LEIVA - Chief Complaint Chief complaint: SI - History of Present Psychiatric Illness Per ED Provider: HPI: Mr. Burton is a 29 yo male with hx of bipolar disorder, ADHD, polysubstance abuse who presents with "suicidal" and "homicidal" thoughts. He states that "a sniper is out to get me". He informed triage nurse that he planned to use a knife or gun to hurt people and himself. He has not taking mediction to address mental health in quite some time. Patient was evaluated for similar concerns two weeks ago in this ER. He was discharged with recommendations for outpatient treatment and prescription for medication. Previous documentation in EMR documents that patient has hx of schizophrenia. PSYCH HPI Patient is a single, unemployed currently on disability 29-year-old - [place] female with past psychiatric history of bipolar and ADHD currently resides with family who presented to the ED with chief complaint of suicidal and homicidal thoughts. Patient reports he wants to go and does not want to deal with the staff here, says they placed him in this room for no reason. Patient states he needs to leave the facility because he has morning that he wants to give his brother who has been in half-way for over a year now, and he wants to go [facility] to visit because he has not seen them for a while and they are currently with the mom. Patient reported he has a GF that has been stalking him for 6 years now and every time he tried a catch up to her, she disappears. She reports what he needs right now is a psychiatrist will help him manage all his medications and also draws blood so that they can tell him if he is taking his medications or not. Patient reported normally takes Zyprexa but has not been taking the medication for a while. Denies hearing any voices at this moment. Endorses to using cocaine recently PAST PSYCHIATRIC HISTORY Diagnoses: Bipolar ADHD Suicide attempts or Self-harm behavior: None reported Prior psychiatric hospitalizations: [facility] Substance Abuse history: Cocaine recently Previous psychiatric medications tried: Zypreza Outpatient treatment: n/a PAST MEDICAL HISTORY: none reported Family Psychiatric History: None reported or documented SOCIAL HISTORY Marital Status: single Living Arrangements: with family Employment Status: disabled Access to guns/weapons: none reported Education: 10th History of Abuse: none reported Legal History: none reported REVIEW OF SYSTEMS Constitutional: Negative for weight loss ENT: Negative for stridor Respiratory: Negative for cough or hemoptysis All other systems reviewed and are negative MENTAL STATUS EXAMINATION General Appearance and Behavior: Age appropriate, good hygiene, wearing a ppropriate clothes, lying in bed, poor eye contact, cooperativeuncooperative irritable with questioning. Cooperation: Participating/engaged Psychomotor Behavior: unremarkable and within normal limits Mood: "not alright" Affect and affective range: irritable Thought Process: Illogical Thought Content: Obsessions, Flight of ideas, Illogical, Grandiose Speech: Normal volume, Regular rate and rhythm Intellectual Functioning: Average Suicidal Ideation: Denies SI Homicidal Ideation: Denies HI Impulse Control: Impaired Insight and Judgment: Limited insight and judgment Memory: Normal Attention: Divided attention impaired Orientation: Alert, oriented Assessment and Plan - Psychiatric problem (1) Substance use disorder Current Visit: Yes Status: Acute (2) Bipolar 1 disorder with moderate tien Current Visit: Yes Status: Acute Treatment Plan MEDICATIONS: Started on Zypreza and Valproate Risks, benefits and alternatives of medications discussed with the patient, questions answered and consent obtained from patient. PSYCHOTHERAPY: Supportive psychotherapy provided MEDICAL: Per primary team DELIRIUM PRECAUTIONS: Please re-orient patient frequently, keep lights on during the day, and minimize benzodiazepines and opiates as these medications could worsen patient's confusion. JAVA GROOVY DEVELOPER: DISPOSITION: Do Recommend acute inpatient psychiatric hospitalization at this time LEGAL STATUS: 1013 FOLLOW-UP: Will follow Thank you for the consult. Please contact with any questions and/or concerns. Medications and Allergies Allergies Allergy/AdvReac Type Severity Reaction Status Date / Time No Known Allergies Allergy Unverified 05/30/19 07:49 Home Medications Medication Instructions Recorded Confirmed Last Taken Type Nicotine [Habitrol] 14 mg TD QDAY #30 patch 05/23/19 06/18/19 Unknown Rx QUEtiapine [SEROquel] 200 mg PO HS #60 05/23/19 06/18/19 Unknown Rx OLANzapine [ZyPREXA] 10 mg PO DAILY #30 tablet 03/18/20 Unknown Rx Active Meds: Active Medications Haloperidol Lactate (Haldol) 5 mg IM Q6HR PRN PRN Reason: Agitation Lorazepam (Ativan) 2 mg IM Q4HR PRN PRN Reason: Agitation Mental Status Exam - Vital signs Last Vital Signs Temp 97.8 F 04/05/20 22:05 Pulse 83 04/05/20 22:05 Resp 18 04/05/20 22:05 BP 106/56 04/05/20 22:05 Pulse Ox 97 04/05/20 22:05 Results Result Diagrams: 04/05/20 05:04 04/05/20 05:04 All other labs normal. Assessment and Plan - Psychiatric problem (1) Substance use disorder Current Visit: Yes Status: Acute (2) Bipolar 1 disorder with moderate tien Current Visit: Yes Status: Acute
[2020-04-06] MEDS: VALPROIC ACID 250 MG CAP PO SCH (21:34)
[2020-04-07] MEDS: VALPROIC ACID 250 MG CAP PO SCH ×2 (09:41→21:46)
--- NOTE | 2020-04-07 10:23 | Progress Note ---
Subjective - Reason for Consult Consult date: 04/07/20 Reason for consult: MHE Requesting physician: SYLVESTER LEIVA - Chief Complaint Chief complaint: Psych Progress Patient seen in seclusion room, this AM. He says he does not feel like talking this AM, because he feels ready to go. I walked away and couple of minutes later, patient started banging on room window, saying he would like to talk. REVIEW OF SYSTEMS Constitutional: Negative for weight loss ENT: Negative for stridor Respiratory: Negative for cough or hemoptysis All other systems reviewed and are negative MENTAL STATUS EXAMINATION General Appearance and Behavior: Age appropriate, good hygiene, wearing appropriate clothes, lying in bed, poor eye contact, cooperativeuncooperative irritable with questioning. Cooperation: Participating/engaged Psychomotor Behavior: unremarkable and within normal limits Mood: "not alright" Affect and affective range: irritable Thought Process: Illogical Thought Content: Obsessions, Flight of ideas, Illogical, Grandiose Speech: Normal volume, Regular rate and rhythm Intellectual Functioning: Average Suicidal Ideation: Denies SI Homicidal Ideation: Denies HI Impulse Control: Impaired Insight and Judgment: Limited insight and judgment Memory: Normal Attention: Divided attention impaired Orientation: Alert, oriented Assessment and Plan - Psychiatric problem (1) Substance use disorder Current Visit: Yes Status: Acute (2) Bipolar 1 disorder with moderate tien Current Visit: Yes Status: Acute Treatment Plan MEDICATIONS: Started on Zypreza and Valproate Risks, benefits and alternatives of medications discussed with the patient, questions answered and consent obtained from patient. PSYCHOTHERAPY: Supportive psychotherapy provided MEDICAL: Per primary team DELIRIUM PRECAUTIONS: Please re-orient patient frequently, keep lights on during the day, and minimize benzodiazepines and opiates as these medications could worsen patient's confusion. DUE DILIGENCE COORDINATOR: DISPOSITION: Do Recommend acute inpatient psychiatric hospitalization at this time LEGAL STATUS: 1013 FOLLOW-UP: Will follow Thank you for the consult. Please contact with any questions and/or concerns. Mental Status Exam - Vital signs Last Vital Signs Temp 98.6 F 04/07/20 01:00 Pulse 76 04/07/20 01:00 Resp 16 04/07/20 01:00 BP 110/59 04/07/20 01:00 Pulse Ox 98 04/07/20 01:00 Assessment and Plan - Patient Problems (1) Substance use disorder Current Visit: Yes Status: Acute (2) Bipolar 1 disorder with moderate tien Current Visit: Yes Status: Acute
[2020-04-07] MEDS ORDERED: ACETAMINOPHEN 325 MG TAB PO ONE (21:35)
--- NOTE | 2020-04-08 08:09 | Progress Note ---
Subjective - Reason for Consult Consult date: 04/08/20 Reason for consult: MHE Requesting physician: ROMAN CÁRDENAS - Chief Complaint Chief complaint: ED Nurse: Pt leaves room raising voice at staff to bring him some food. Pt has already been given meal tray and snack bag. Pt began yelling. Security called. Psych Progress Patient seen in seclusion room again, reviewed nurses note, pt uncompliant with medications but informed me he does not want the other type of medication because he has tremors with it. Patient says he would like to be discharged and see his mother at home. I called mom, she reports patient was angry and yelling at her on the phone yesterday and she cant take him back like this, would want him to be placed in a facility. REVIEW OF SYSTEMS Constitutional: Negative for weight loss ENT: Negative for stridor Respiratory: Negative for cough or hemoptysis All other systems reviewed and are negative MENTAL STATUS EXAMINATION General Appearance and Behavior: Age appropriate, good hygiene, wearing appropriate clothes, lying in bed, poor eye contact, cooperativeuncooperative irritable with questioning. Cooperation: Participating/engaged Psychomotor Behavior: unremarkable and within normal limits Mood: "not alright" Affect and affective range: irritable Thought Process: Illogical Thought Content: Obsessions, Flight of ideas, Illogical, Grandiose Speech: Normal volume, Regular rate and rhythm Intellectual Functioning: Average Suicidal Ideation: Denies SI Homicidal Ideation: Denies HI Impulse Control: Impaired Insight and Judgment: Limited insight and judgment Memory: Normal Attention: Divided attention impaired Orientation: Alert, oriented Assessment and Plan - Psychiatric problem (1) Substance use disorder Current Visit: Yes Status: Acute (2) Bipolar 1 disorder with moderate tien Current Visit: Yes Status: Acute Treatment Plan MEDICATIONS: Increase Zypreza and Valproate Risks, benefits and alternatives of medications discussed with the patient, questions answered and consent obtained from patient. PSYCHOTHERAPY: Supportive psychotherapy provided MEDICAL: Per primary team DELIRIUM PRECAUTIONS: Please re-orient patient frequently, keep lights on during the day, and minimize benzodiazepines and opiates as these medications could worsen patient's confusion. HEATER OPERATOR: DISPOSITION: Do Recommend acute inpatient psychiatric hospitalization at this time LEGAL STATUS: 1013 FOLLOW-UP: Will follow Thank you for the consult. Please contact with any questions and/or concerns. Mental Status Exam - Vital signs Last Vital Signs Temp 98.0 F 04/07/20 19:44 Pulse 74 04/07/20 19:44 Resp 18 04/07/20 19:44 BP 132/86 04/07/20 19:44 Pulse Ox 98 04/07/20 19:44 Assessment and Plan - Patient Problems (1) Substance use disorder Status: Acute (2) Bipolar 1 disorder with moderate tien Status: Acute
[2020-04-08] MEDS: VALPROIC ACID 250 MG CAP PO SCH ×2 (10:00→22:18)
[2020-04-08 18:30] LABS: Basophils % (Auto) 0.8 % (0.0-1.8); Eosinophils # (Auto) 0.1 K/mm3 (0.0-0.4); Eosinophils % (Auto) 2.6 % (0.0-4.3); Hemoglobin 14.1 gm/dl (11.8-15.2); Lymphocytes # (Auto) 1.5 K/mm3 (1.2-5.4); Lymphocytes % (Auto) 26.2 % (13.4-35.0); Mean Corpuscular HGB Conc 34 % (32-34); Mean Corpuscular Volume 92 fl (84-94); Monocytes # (Auto) 0.7 K/mm3 (0.0-0.8); Monocytes % (Auto) 13.1 % (0.0-7.3); Platelet Count 238 K/mm3 (140-440); Red Blood Count 4.56 M/mm3 (3.65-5.03); Red Cell Distribution Width 13.7 % (13.2-15.2)
--- NOTE | 2020-04-09 09:49 | Progress Note ---
Subjective - Reason for Consult Consult date: 04/09/20 Reason for consult: MHE Requesting physician: VISHAL LEIVA - Chief Complaint Chief complaint: ED Nurse: pt requested to be out of seclusion and states "I will not bother any one and will behave." Pt currently out of seclusion and is calm and cooperative at this time. Will continue to monitor. Psych Progress Patient seen this AM, calm and quite but states he does not want to talk unless his discharge plans are being made. Nurse reports patient still medication non compliant REVIEW OF SYSTEMS Constitutional: Negative for weight loss ENT: Negative for stridor Respiratory: Negative for cough or hemoptysis All other systems reviewed and are negative MENTAL STATUS EXAMINATION General Appearance and Behavior: Age appropriate, good hygiene, wearing appropriate clothes, lying in bed, poor eye contact,uncooperative irritable with questioning. Cooperation: Participating/engaged Psychomotor Behavior: unremarkable and within normal limits Mood: "good" Affect and affective range: irritable Thought Process: Illogical Thought Content: Obsessions, Flight of ideas, Illogical, Grandiose Speech: Normal volume, Regular rate and rhythm Intellectual Functioning: Average Suicidal Ideation: Denies SI Homicidal Ideation: Denies HI Impulse Control: Impaired Insight and Judgment: Limited insight and judgment Memory: Normal Attention: Divided attention impaired Orientation: Alert, oriented Assessment and Plan - Psychiatric problem (1) Substance use disorder Current Visit: Yes Status: Acute (2) Bipolar 1 disorder with moderate tien Current Visit: Yes Status: Acute Treatment Plan WIll start patient on IM haldol decanoate, observe 4 hours post injection and discharge. MEDICATIONS: Increase Zypreza and Valproate Risks, benefits and alternatives of medications discussed with the patient, questions answered and consent obtained from patient. PSYCHOTHERAPY: Supportive psychotherapy provided MEDICAL: Per primary team DELIRIUM PRECAUTIONS: Please re-orient patient frequently, keep lights on during the day, and minimize benzodiazepines and opiates as these medications could worsen patient's confusion. WORKFORCE MANAGEMENT ANALYST: DISPOSITION: Do not Recommend acute inpatient psychiatric hospitalization at this time. Outpt psych f/u recommended LEGAL STATUS: 1013 rescinded FOLLOW-UP: Will sign off Thank you for the consult. Please contact with any questions and/or concerns. Mental Status Exam - Vital signs Last Vital Signs Temp 97.4 F L 04/08/20 19:00 Pulse 100 H 04/08/20 19:00 Resp 18 04/08/20 19:00 BP 137/85 04/08/20 19:00 Pulse Ox 99 04/08/20 19:00 Assessment and Plan - Patient Problems (1) Substance use disorder Status: Acute (2) Bipolar 1 disorder with moderate tien Status: Acute
[2020-04-09] MEDS ORDERED: BENZTROPINE 2 MG/2 ML INJ IM ONE (11:34)
[2020-04-09] MEDS ORDERED: HALOPERIDOL DECANOATE 100 MG/1 ML INJ IM ONE (12:00)
[2020-04-09] MEDS: VALPROIC ACID 250 MG CAP PO SCH (12:51)
[2020-04-09 16:57] VITALS: BP 130/86
[2020-04-09 21:07] LABS: HIV-1 RNA QN PCR 3.46 Log cps/mL
== END 2020-04-09 17:20 | disposition home or self-care (01) ==
LOC: EEVIPCON 02:45 → ED 02:45 → EDBD 02:45 → ED 04-09 17:20
DX: F31.9 Bipolar disorder, unspecified (principal); F15.10 Other stimulant abuse, uncomplicated
CPT/HCPCS: 36415; 80048; 80074; 80307; 81001; 85025; 87536; 96372; 99284; J0515; J1630; J1631; J2060; J3486; U0003; 80320; G0480

== ENCOUNTER 2020-06-22 03:00 | Emergency (ER) | payer MEDICAID ==
--- NOTE | 2020-06-22 03:46 | Emergency Department Report ---
<MARKY GIBBONSMÓNICA Collins - Last Filed: 06/22/20 04:26> ED Psych HPI - General Chief Complaint: Psych Stated Complaint: FEELING HOMICIDAL/SUICIDAL Time Seen by Provider: 06/22/20 03:43 Source: patient Mode of arrival: Ambulatory Limitations: No Limitations - History of Present Illness Initial Comments: Patient is a 29-year-old male that presents emergency room with complaints of homicidal ideations. Patient also complaining of people following him and a sniper trying to kill him. Patient states he thinks people are out to get him. Patient complains of hallucinations. Patient states his homicidal ideations are towards everybody. Patient states he wants to jump off a bridge. Patient states he is depressed. Patient states he is anxious. Patient denies any physical complaints. Patient denies recent travel. Patient denies recent international travel. Patient denies exposure to the novel coronavirus. Patient denies sick contacts. Patient denies fever and chills. Patient denies cough. Patient denies diarrhea. Patient denies coming in contact with anybody with symptoms of the novel coronavirus. MD Complaint: suicidal ideation, feels depressed -: Sudden Associated Psychiatric Symptoms: depression, suicidal ideation, homicidal i deation, racing thoughts, auditory hallucinations, visual hallucinations, delusions History of same: Yes Quality: constant Improves With: none Worsens With: none Context: significant life stressor Associated Symptoms: denies other symptoms If Self Harm: admits thoughts of, has plan - Related Data Previous Rx's Medication Instructions Recorded Last Taken Type QUEtiapine [SEROquel] 200 mg PO HS #60 05/23/19 Unknown Rx OLANzapine [ZyPREXA] 10 mg PO DAILY #30 tablet 06/23/20 Unknown Rx Valproic Acid [Depakene] 500 mg PO BID #60 capsule 06/23/20 Unknown Rx Allergies Allergy/AdvReac Type Severity Reaction Status Date / Time No Known Allergies Allergy Unverified 05/30/19 07:49 ED Review of Systems Constitutional: denies: chills, fever Eyes: denies: eye pain, eye discharge, vision change ENT: denies: ear pain, throat pain Respiratory: denies: cough, shortness of breath, wheezing Cardiovascular: denies: chest pain, palpitations Endocrine: no symptoms reported Gastrointestinal: denies: abdominal pain, nausea, diarrhea Genitourinary: denies: urgency, dysuria Musculoskeletal: denies: back pain, joint swelling, arthralgia Skin: denies: rash, lesions Neurological: denies: headache, weakness, paresthesias Psychiatric: anxiety, depression, auditory hallucinations, visual hallucinations, homicidal thoughts, suicidal thoughts Hematological/Lymphatic: denies: easy bleeding, easy bruising ED Past Medical Hx - Past Medical History Previous Medical History?: Yes Hx Psychiatric Treatment: Yes (bipolar, adhd, drug use) Hx Asthma: Yes Additional medical history: Bi polar - Surgical History Past Surgical History?: No - Family History Family history: no significant - Social History Smoking Status: Current Every Day Smoker Substance Use Type: Marijuana, Other - Medications Home Medications: Home Medications Medication Instructions Recorded Confirmed Last Taken Type QUEtiapine [SEROquel] 200 mg PO HS #60 05/23/19 06/22/20 Unknown Rx OLANzapine [ZyPREXA] 10 mg PO DAILY #30 tablet 06/23/20 Unknown Rx Valproic Acid [Depakene] 500 mg PO BID #60 capsule 06/23/20 Unknown Rx ED Physical Exam - General Limitations: No Limitations General appearance: alert, in no apparent distress - Head Head exam: Present: atraumatic, normocephalic - Eye Eye exam: Present: normal appearance - ENT ENT exam: Present: mucous membranes moist - Neck Neck exam: Present: normal inspection - Respiratory Respiratory exam: Present: normal lung sounds bilaterally. Absent: respiratory distress - Cardiovascular Cardiovascular Exam: Present: regular rate, normal rhythm. Absent: systolic murmur, diastolic murmur, rubs, gallop - GI/Abdominal GI/Abdominal exam: Present: soft, normal bowel sounds - Rectal Rectal exam: Present: deferred - Extremities Exam Extremities exam: Present: normal inspection - Back Exam Back exam: Present: normal inspection - Neurological Exam Neurological exam: Present: alert, oriented X3 - Psychiatric Psychiatric exam: Present: depressed, flat affect, homicidal ideation, suicidal ideation - Skin Skin exam: Present: warm, dry, intact, normal color. Absent: rash ED Course - Reevaluation(s) Reevaluation #1: Patient was placed on a ER hold. 06/22/20 03:45 Reevaluation #2: Patient became agitated. Patient given Benadryl, Haldol and Ativan. 06/22/20 04:01 ED Medical Decision Making - Lab Data Result diagrams: 06/22/20 03:30 - Medical Decision Making Patient is a 29-year-old male who presents emergency room with complaints of suicidal and homicidal ideation. Patient also having paranoia and delusions. Patient placed on a ER hold. Patient had labs done. Patient is medically clear. Patient's final disposition will come from our mental health and psychiatry team. - Differential Diagnosis Suicidal ideation, homicidal ideation, hallucinations, psychosis, paranoia, ED Disposition Clinical Impression: General medical exam, Substance use disorder, Drug abuse, Bipolar disorder Disposition: DC-01 TO HOME OR SELFCARE Is pt being admited?: No Does the pt Need Aspirin: No Condition: Stable Additional Instructions: Recommend that the patient avoid consumption of alcohol, and recreational drugs. Recommend that patient not drive or operate motor vehicles for the next 6 months, or until cleared to do so by her primary care doctor. Please follow-up with an outpatient primary care doctor and/or psychiatrist within the next month. Return to the emergency room right away with new pain, worsened pain, migration of pain, projectile vomiting, change in mental status, confusion, inability to tolerate liquid feeds, new, worsened or different symptoms not present on the initial emergency room evaluation. OUTPATIENT MENTAL HEALTH RESOURCES [facility], [facility] Redd Costello MD: [address] [facility] [address] [place] [address] [place], [place] [id number] [facility]: [employer] [address] [place] [address] [place] [address] [phone] [facility]: [facility] Healthcare: [address] [facility] [place] [address] [facility] [address] [facility]: Frank Holm MD: [address] [facility] [address] [facility] [id number] [facility]: [address] [place], [place] [id number] [phone] [facility]: Prescriptions: Valproic Acid [Depakene] 500 mg PO BID #60 capsule OLANzapine [ZyPREXA] 10 mg PO DAILY #30 tablet Referrals: [facility] [Provider Group] - 3-[address] [facility] [Outside] - 3-5 Days <YAELKARAN - Last Filed: 06/23/20 13:13> ED Review of Systems ROS: Stated complaint: FEELING HOMICIDAL/SUICIDAL Other details as noted in HPI ED Course Vital Signs 06/22/20 06/22/20 06/22/20 03:15 08:25 08:41 Temperature 98.1 F 97.6 F 97.6 F Pulse Rate 81 90 90 Respiratory 18 18 20 Rate Blood Pressure 136/79 Blood Pressure 131/78 [Left] O2 Sat by Pulse 92 98 Oximetry 06/22/20 06/22/20 06/22/20 15:07 17:41 19:40 Temperature 99.0 F 98.0 F 98.2 F Pulse Rate 16 L 89 66 Respiratory 16 16 18 Rate Blood Pressure Blood Pressure 101/71 119/70 115/66 [Left] O2 Sat by Pulse 96 97 99 Oximetry 06/23/20 06/23/20 01:30 10:30 Temperature 98.0 F 98 F Pulse Rate 69 80 Respiratory 18 19 Rate Blood Pressure Blood Pressure 116/61 118/76 [Left] O2 Sat by Pulse 100 98 Oximetry - Reevaluation(s) Reevaluation #3: 06/23/20 13:11 Patient deemed medically cleared approximately 34 hours ago. Vital signs, labo ratory studies reviewed and appreciated, psychiatric consultation reviewed and appreciated. Patient deemed medically clear by initial evaluating physician. 1013 has been discontinued, patient provided with outpatient resources. At the moment, resting calmly on stretcher, in no acute distress, not endorsing homicidality, suicidality. Alert, oriented, and exhibiting decision-making capacity at this time. ED Medical Decision Making - Lab Data Result diagrams: 06/22/20 03:30 06/22/20 03:30 Vital Signs 06/22/20 06/22/20 06/22/20 03:15 08:25 08:41 Temperature 98.1 F 97.6 F 97.6 F Pulse Rate 81 90 90 Respiratory 18 18 20 Rate Blood Pressure 136/79 Blood Pressure 131/78 [Left] O2 Sat by Pulse 92 98 Oximetry 06/22/20 06/22/20 06/22/20 15:07 17:41 19:40 Temperature 99.0 F 98.0 F 98.2 F Pulse Rate 16 L 89 66 Respiratory 16 16 18 Rate Blood Pressure Blood Pressure 101/71 119/70 115/66 [Left] O2 Sat by Pulse 96 97 99 Oximetry 06/23/20 06/23/20 01:30 10:30 Temperature 98.0 F 98 F Pulse Rate 69 80 Respiratory 18 19 Rate Blood Pressure Blood Pressure 116/61 118/76 [Left] O2 Sat by Pulse 100 98 Oximetry Labs 06/22/20 06/22/20 06/22/20 03:30 03:30 03:30 WBC RBC Hgb Hct MCV MCH MCHC RDW Plt Count Lymph % (Auto) [place] % (Auto) Eos % (Auto) Baso % (Auto) Lymph # (Auto) [place] # (Auto) Eos # (Auto) Baso # (Auto) Seg Neutrophils % Seg Neutrophils # Sodium 141 Potassium 4.7 Chloride 105.0 Carbon Dioxide 24 Anion Gap 17 BUN 8 L Creatinine 0.8 Estimated GFR > 60 BUN/Creatinine Ratio 10 Glucose 100 Calcium 10.1 Urine Color Urine Turbidity Urine pH Ur Specific [place] Urine Protein Urine Glucose (UA) Urine Ketones Urine Blood Urine Nitrite Urine Bilirubin Urine Urobilinogen Ur Leukocyte Esterase Urine WBC (Auto) Urine RBC (Auto) Urine Mucus Salicylates < 0.3 L Urine Opiates Screen Urine Methadone Screen Acetaminophen 5.0 L Ur Barbiturates Screen Ur Phencyclidine Scrn Ur Amphetamines Screen U Benzodiazepines Scrn Urine Cocaine Screen U Marijuana (THC) Screen Drugs of Abuse Note Plasma/Serum Alcohol 06/22/20 06/22/20 06/22/20 03:30 03:30 03:46 WBC 7.4 RBC 4.82 Hgb 15.0 Hct 45.3 MCV 94 MCH 31 MCHC 33 RDW 14.0 Plt Count 267 Lymph % (Auto) 16.2 [place] % (Auto) 7.4 H Eos % (Auto) 0.9 Baso % (Auto) 2.5 H Lymph # (Auto) 1.2 [place] # (Auto) 0.6 Eos # (Auto) 0.1 Baso # (Auto) 0.2 H Seg Neutrophils % 73.0 H Seg Neutrophils # 5.4 Sodium Potassium Chloride Carbon Dioxide Anion Gap BUN Creatinine Estimated GFR BUN/Creatinine Ratio Glucose Calcium Urine Color Yellow Urine Turbidity Clear Urine pH 5.0 Ur Specific [place] 1.013 Urine Protein <15 mg/dl Urine Glucose (UA) Neg Urine Ketones Neg Urine Blood Neg Urine Nitrite Neg Urine Bilirubin Neg Urine Urobilinogen < 2.0 Ur Leukocyte Esterase Neg Urine WBC (Auto) 0.0 Urine RBC (Auto) 1.0 Urine Mucus Few Salicylates Urine Opiates Screen Urine Methadone Screen Acetaminophen Ur Barbiturates Screen Ur Phencyclidine Scrn Ur Amphetamines Screen U Benzodiazepines Scrn Urine Cocaine Screen U Marijuana (THC) Screen Drugs of Abuse Note Plasma/Serum Alcohol 0.03 06/22/20 03:46 WBC RBC Hgb Hct MCV MCH MCHC RDW Plt Count Lymph % (Auto) [place] % (Auto) Eos % (Auto) Baso % (Auto) Lymph # (Auto) [place] # (Auto) Eos # (Auto) Baso # (Auto) Seg Neutrophils % Seg Neutrophils # Sodium Potassium Chloride Carbon Dioxide Anion Gap BUN Creatinine Estimated GFR BUN/Creatinine Ratio Glucose Calcium Urine Color Urine Turbidity Urine pH Ur Specific [place] Urine Protein Urine Glucose (UA) Urine Ketones Urine Blood Urine Nitrite Urine Bilirubin Urine Urobilinogen Ur Leukocyte Esterase Urine WBC (Auto) Urine RBC (Auto) Urine Mucus Salicylates Urine Opiates Screen Presumptive negative Urine Methadone Screen Presumptive negative Acetaminophen Ur Barbiturates Screen Presumptive negative Ur Phencyclidine Scrn Presumptive negative Ur Amphetamines Screen Presumptive negative U Benzodiazepines Scrn Presumptive negative Urine Cocaine Screen Presumptive positive U Marijuana (THC) Screen Presumptive negative Drugs of Abuse Note Disclamer Plasma/Serum Alcohol Critical care attestation.: If time is entered above; I have spent that time in minutes in the direct care of this critically ill patient, excluding procedure time. ED Disposition Is pt being admited?: No Does the pt Need Aspirin: No
[2020-06-22 04:19] LABS: Basophils # (Auto) 0.2 K/mm3 (0.0-0.1); Basophils % (Auto) 2.5 % (0.0-1.8); Eosinophils # (Auto) 0.1 K/mm3 (0.0-0.4); Eosinophils % (Auto) 0.9 % (0.0-4.3); Hematocrit 45.3 % (35.5-45.6); Lymphocytes # (Auto) 1.2 K/mm3 (1.2-5.4); Lymphocytes % (Auto) 16.2 % (13.4-35.0); Mean Corpuscular HGB Conc 33 % (32-34); Mean Corpuscular Volume 94 fl (84-94); Monocytes # (Auto) 0.6 K/mm3 (0.0-0.8); Monocytes % (Auto) 7.4 % (0.0-7.3); Platelet Count 267 K/mm3 (140-440); Red Blood Count 4.82 M/mm3 (3.65-5.03)
[2020-06-22 04:30] LABS: BUN/Creatinine Ratio 10; Blood Urea Nitrogen 8 mg/dL (9-20); Calcium 10.1 mg/dL (8.4-10.2); Hemolysis Index 10
[2020-06-22] MEDS ORDERED: ZIPRASIDONE MESYLATE 20 MG VIAL IM ONE (04:30)
[2020-06-22] MEDS ORDERED: LORazepam 2 MG/ML VIAL IM ONE (04:30)
[2020-06-22 04:39] LABS: Amphetamine Screen,Urine PRESUMPTIVE NEGATIVE; Benzodiazepines Screen,Urine PRESUMPTIVE NEGATIVE; Cannabinoid Screen,Urine PRESUMPTIVE NEGATIVE; Cocaine Screen,Urine PRESUMPTIVE POSITIVE; Methadone Screen,Urine PRESUMPTIVE NEGATIVE; Opiate Screen,Urine PRESUMPTIVE NEGATIVE
[2020-06-22 04:43] LABS: Bilirubin,Urine NEG (Negative); Blood,Urine NEG (Negative); Color,Urine Yellow (Yellow); Mucus,Urine FEW /HPF; Protein,Urine <15 mg/dL mg/dL (Negative); Urobilinogen,Urine < 2.0 mg/dL (<2.0)
[2020-06-22] MEDS ORDERED: HYDROGEN PEROXIDE 118 ML SOLUTION ONE (04:47)
[2020-06-22] MEDS ORDERED: diphenhydrAMINE 50 MG/ML VIAL IV ONE (04:52)
--- NOTE | 2020-06-22 10:17 | Consultation ---
History of Present Illness - Reason for Consult Consult date: 06/22/20 Reason for consult: SI/HI, paranoia - History of Present Psychiatric Illness Tammy Barbosa is a 29y/o male patient who is known to me from previous visits. The patient presented to the ER for SI/HI thoughts, depression and feeling like people following him and out to get him. During my interview with the patient today, he is lying down. He is a/o x 3. The patient states he is still feeling suicidal and homicidal. He says if he "could get my hands on a gun I'm gone hurt somebody, myself or somebody." He says "people are out to get me and they keep following me around." He says "I see them. They think I don't, but I do." The patient says he's "been off seroquel." He says he did "ecstasy and cocaine." PAST PSYCHIATRIC HISTORY Diagnoses: Bipolar ADHD Suicide attempts or Self-harm behavior: None reported Prior psychiatric hospitalizations: [facility] Substance Abuse history: Cocaine, ecstasy recently Previous psychiatric medications tried: Zypreza seroquel Outpatient treatment: n/a PAST MEDICAL HISTORY: none reported Family Psychiatric History: None reported or documented SOCIAL HISTORY Marital Status: single Living Arrangements: with family Employment Status: disabled Access to guns/weapons: none reported Education: 10th History of Abuse: none reported Legal History: none reported REVIEW OF SYSTEMS Constitutional: Negative for weight loss ENT: Negative for stridor Respiratory: Negative for cough or hemoptysis All other systems reviewed and are negative MENTAL STATUS EXAMINATION General Appearance and Behavior: Age appropriate, good hygiene, wearing appropriate clothes, lying in bed, poor eye contact, cooperative Cooperation: Participating/engaged Psychomotor Behavior: unremarkable and within normal limits Mood: "not good, depressed" Affect and affective range: restricted Thought Process: Illogical Thought Content: Obsessions, Illogical, paranoia, delusions, hallucinations Speech: Normal volume, Regular rate and rhythm Suicidal Ideation: Yes Homicidal Ideation: Yes Hallucinations: yes Delusions: Yes, paranoid Impulse Control: Impaired Insight and Judgment: Limited insight and judgment Memory: Normal Attention: Divided attention impaired Orientation: Alert, oriented Assessment and Plan (1) Cocaine Use Disorder (2) Substance Induced Mood Disorder Current Visit: Yes Status: Acute (3) Bipolar Disorder, Mod, Current Episode Depressed Current Visit: Yes Status: Acute Treatment Plan 1013 Start Seroquel 200mg po qhs Start Depakote DR 125mg po BID Risks, benefits and alternatives of medications discussed with the patient, questions answered and consent obtained from patient. PSYCHOTHERAPY: Supportive psychotherapy provided MEDICAL: Per primary team DELIRIUM PRECAUTIONS: Please re-orient patient frequently, keep lights on during the day, and minimize benzodiazepines and opiates as these medications could worsen patient's confusion. 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 Please contact with any questions and/or concerns. Medications and Allergies Allergies Allergy/AdvReac Type Severity Reaction Status Date / Time No Known Allergies Allergy Unverified 05/30/19 07:49 Home Medications Medication Instructions Recorded Confirmed Last Taken Type Nicotine [Habitrol] 14 mg TD QDAY #30 patch 05/23/19 06/18/19 Unknown Rx QUEtiapine [SEROquel] 200 mg PO HS #60 05/23/19 06/18/19 Unknown Rx OLANzapine [ZyPREXA] 10 mg PO DAILY #30 tablet 03/18/20 Unknown Rx Valproic Acid [Depakene] 500 mg PO BID #60 capsule 04/09/20 Unknown Rx Mental Status Exam - Vital signs Last Vital Signs Temp 97.6 F 06/22/20 08:41 Pulse 90 06/22/20 08:41 Resp 20 06/22/20 08:41 BP 131/78 06/22/20 08:41 Pulse Ox 98 06/22/20 08:41 Results Result Diagrams: 06/22/20 03:30 06/22/20 03:30 Abnormal lab results 06/22/20 06/22/20 06/22/20 Range/Units 03:30 03:30 03:30 [place] % (Auto) (0.0-7.3) % Baso % (Auto) (0.0-1.8) % Baso # (Auto) (0.0-0.1) K/mm3 Seg Neutrophils % (40.0-70.0) % BUN 8 L (9-20) mg/dL Salicylates < 0.3 L (2.8-20.0) mg/dL Acetaminophen 5.0 L (10.0-30.0) ug/mL 06/22/20 Range/Units 03:30 [place] % (Auto) 7.4 H (0.0-7.3) % Baso % (Auto) 2.5 H (0.0-1.8) % Baso # (Auto) 0.2 H (0.0-0.1) K/mm3 Seg Neutrophils % 73.0 H (40.0-70.0) % BUN (9-20) mg/dL Salicylates (2.8-20.0) mg/dL Acetaminophen (10.0-30.0) ug/mL All other labs normal.
[2020-06-22] MEDS: DIVALPROEX DR 125 MG TAB PO SCH ×2 (12:37→21:53)
[2020-06-22] MEDS ORDERED: QUEtiapine 200 MG TAB PO SCH (22:00)
--- NOTE | 2020-06-23 07:12 | Progress Note ---
Subjective - Reason for Consult Consult date: 06/23/20 Reason for consult: MHE Requesting physician: MÓNICA NEGRO III - Chief Complaint Chief complaint: Psych Progress Patient seen today, says he does not feel like talking much because he is been kept here, he reports not feeling suicidal anymore, no more homicidal thoguths since he started back on his medications and would like to be discharge home on meds so he can follow up/ REVIEW OF SYSTEMS Constitutional: Negative for weight loss ENT: Negative for stridor Respiratory: Negative for cough or hemoptysis All other systems reviewed and are negative MENTAL STATUS EXAMINATION General Appearance and Behavior: Age appropriate, good hygiene, wearing appropriate clothes, lying in bed, poor eye contact, cooperativeuncooperative irritable with questioning. Cooperation: Participating/engaged Psychomotor Behavior: unremarkable and within normal limits Mood: "im better" Affect and affective range: flat Thought Process: logical Thought Content: goal oriented Speech: Normal volume, Regular rate and rhythm Intellectual Functioning: Average Suicidal Ideation: Denies SI Homicidal Ideation: Denies HI Impulse Control: Impaired Insight and Judgment: Limited insight and judgment Memory: Normal Attention: Divided attention impaired Orientation: Alert, oriented Assessment and Plan - Psychiatric problem (1) Substance use disorder Current Visit: Yes Status: Acute (2) Bipolar 1 disorder with moderate tien Current Visit: Yes Status: Acute Treatment Plan MEDICATIONS: Started on Zypreza and Valproate outpt Risks, benefits and alternatives of medications discussed with the patient, questions answered and consent obtained from patient. PSYCHOTHERAPY: Supportive psychotherapy provided MEDICAL: Per primary team DELIRIUM PRECAUTIONS: Please re-orient patient frequently, keep lights on during the day, and minimize benzodiazepines and opiates as these medications could worsen patient's confusion. 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 Please contact with any questions and/or concerns. Mental Status Exam - Vital signs Last Vital Signs Temp 98.0 F 06/23/20 01:30 Pulse 69 06/23/20 01:30 Resp 18 06/23/20 01:30 BP 116/61 06/23/20 01:30 Pulse Ox 100 06/23/20 01:30
[2020-06-23] MEDS: DIVALPROEX DR 125 MG TAB PO SCH (10:25)
[2020-06-23 10:33] VITALS: BP 118/76
== END 2020-06-23 13:33 | disposition home or self-care (01) ==
LOC: ED 03:00 → EEVIPCON 03:00 → ED 06-23 13:33
DX: F31.9 Bipolar disorder, unspecified (principal); F15.10 Other stimulant abuse, uncomplicated; F19.90 Other psychoactive substance use, unspecified, uncomplicated
CPT/HCPCS: 36415; 80048; 80307; 81001; 85025; 96372; 96374; 99284; J1200; J2060; J3486; 80320; G0480

== ENCOUNTER 2021-09-27 00:57 | Emergency (ER) | payer MEDICAID ==
[2021-09-27] MEDS ORDERED: LORazepam 2 MG/ML VIAL IM PRN (01:30)
[2021-09-27] MEDS ORDERED: HALOPERIDOL LACTATE 5 MG/1 ML INJ IM PRN (01:30)
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
[2021-09-27] MEDS: diphenhydrAMINE 25 MG CAP PO PRN ×2 (02:05→20:43)
[2021-09-27] MEDS: LORazepam 2 MG/ML VIAL IM PRN ×2 (02:05→20:41)
[2021-09-27] MEDS: HALOPERIDOL LACTATE 5 MG/1 ML INJ IM PRN ×2 (02:06→20:43)
[2021-09-27 02:24] LABS: Hematocrit 25.3 % (35.5-45.6); Mean Corpuscular HGB Conc 32 % (32-34); Mean Corpuscular Volume 74 fl (84-94); Platelet Count 343 K/mm3 (140-440); Red Blood Count 3.44 M/mm3 (3.65-5.03)
[2021-09-27 02:46] LABS: BUN/Creatinine Ratio 14; Blood Urea Nitrogen 11 mg/dL (9-20); Calcium 9.4 mg/dL (8.4-10.2); Hemolysis Index 6
--- NOTE | 2021-09-27 08:07 | Emergency Department Report ---
Blank Doc - Documentation Documentation: Patient is currently resting. There were no events throughout the night. Cinthya major still endorses thoughts of self-harm. We are awaiting a psychiatric disposition.
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
[2021-09-27] MEDS: FERROUS SULFATE 325 MG TAB PO SCH ×2 (10:40→22:00)
[2021-09-27 11:18] VITALS: BP 114/84
[2021-09-27] MEDS: QUEtiapine 25 MG TAB PO SCH ×2 (19:11→22:00)
[2021-09-27] MEDS: DIVALPROEX DR 125 MG TAB PO SCH ×2 (19:11→22:00)
[2021-09-27 20:40] LABS: Bilirubin,Urine NEG (Negative); Blood,Urine NEG (Negative); Color,Urine Yellow (Yellow); Mucus,Urine FEW /HPF; Protein,Urine <15 mg/dL mg/dL (Negative); RBC,Urine < 1.0 /HPF (0.0-6.0); Urobilinogen,Urine < 2.0 mg/dL (<2.0)
[2021-09-27 20:47] LABS: Amphetamine Screen,Urine Negative; Benzodiazepines Screen,Urine Negative; Cannabinoid Screen,Urine Negative; Cocaine Screen,Urine Negative; Methadone Screen,Urine Negative; Opiate Screen,Urine Negative
[2021-09-27] MEDS ORDERED: DOXEPIN 10 MG CAP PO SCH (22:00)
[2021-09-28] MEDS: DIVALPROEX DR 125 MG TAB PO SCH (09:53)
[2021-09-28] MEDS: QUEtiapine 25 MG TAB PO SCH (09:54)
[2021-09-28] MEDS: FERROUS SULFATE 325 MG TAB PO SCH (09:54)
--- NOTE | 2021-09-28 11:05 | Progress Note ---
Subjective - Reason for Consult Consult date: 09/28/21 Reason for consult: SI - Chief Complaint Chief complaint: The patient was seen today. He is slightly irritable about being here. He says "I need real food, a shower, air. Being stuck back in this room is just not doing it for me." He says he slept good and his appetite is good. He says "ma'am, ask the nurse, I been in here chilling and minding my business. I've been calm." He says "the same thing last night, I was calm and straight." He denies SI/HI or hallucinations of any kind. REVIEW OF SYSTEMS Constitutional: Negative for weight loss ENT: Negative for stridor Respiratory: Negative for cough or hemoptysis All other systems reviewed and are negative MENTAL STATUS EXAMINATION General Appearance and Behavior: Age appropriate, good hygiene, wearing appropriate clothes, lying in bed, poor eye contact, cooperative Cooperation: Participating/engaged Psychomotor Behavior: unremarkable and within normal limits Mood: good Affect and affective range: congruent with stated mood Thought Process: goal directed Thought Content: None Speech: Normal volume, Regular rate and rhythm Suicidal Ideation: Denies Homicidal Ideation: Denies Hallucinations: Denies Delusions: None elicited Impulse Control: Limited Insight and Judgment: Limited insight and judgment Memory: Normal Attention: Attentive Orientation: Alert, oriented Assessment and Plan (3) Bipolar Disorder, Mod, Current Episode Depressed Current Visit: Yes Status: Acute Treatment Plan d/c 1013 Seroquel 50mg po BID Depakote DR 125mg po BID Doxepin 10mg po qhs Risks, benefits and alternatives of medications discussed with the patient, questions answered and consent obtained from patient. PSYCHOTHERAPY: Supportive psychotherapy provided MEDICAL: Per primary team DELIRIUM PRECAUTIONS: Please re-orient patient frequently, keep lights on during the day, and minimize benzodiazepines and opiates as these medications could worsen patient's confusion. BED SETTER: DISPOSITION: Do not recommend acute inpatient psychiatric hospitalization at this time The order administrator to complete safety plan and give all necessary resources. The patient to follow up with outpatient psych in 7 to 14 days upon discharge FOLLOW-UP: Will sign off. Thank you for the consult. Please contact with any questions and/or concerns. Case staffed with Dr. Flores Mental Status Exam - Vital signs Last Vital Signs Temp 97.6 F 09/27/21 11:17 Pulse 98 H 02/25/22 11:17 Resp 18 09/27/21 11:17 BP 114/84 09/27/21 11:17 Pulse Ox 97 09/27/21 23:20
--- NOTE | 2021-09-28 11:25 | Event Note ---
Date: 09/28/21 vss , no distress , no events overnight , assessed by [facility] d/103 , discharge wqith follow up OP
== END 2021-09-27 11:30 | disposition home or self-care (01) ==
LOC: ED 00:57
DX: F29 Unspecified psychosis not due to a substance or known physiological condition (principal); R45.851 Suicidal ideations; J45.909 Unspecified asthma, uncomplicated; Z20.822 Contact with and (suspected) exposure to COVID-19; F31.9 Bipolar disorder, unspecified; F17.200 Nicotine dependence, unspecified, uncomplicated; F12.90 Cannabis use, unspecified, uncomplicated; Z79.899 Other long term (current) drug therapy
CPT/HCPCS: 36415; 80048; 80164; 80307; 81001; 82550; 85027; 96372; 99284; J1630; J2060; U0003; 80320; G0480

== ENCOUNTER 2022-03-22 20:08 | Emergency (ER) | payer MEDICAID | END 2022-03-23 01:15 | disposition left against medical advice (07) | LOC: ED 20:08 | DX: R45.851 Suicidal ideations (principal); Z53.21 Procedure and treatment not carried out due to patient leaving prior to being seen by health care provider ==

== ENCOUNTER 2022-04-16 10:04 | Emergency (ER) | payer MEDICAID ==
[2022-04-16 10:08] VITALS: BP 153/85
[2022-04-16 11:05] LABS: Basophils # (Auto) 0.1 K/mm3 (0.0-0.1); Basophils % (Auto) 1.1 % (0.0-1.8); Eosinophils # (Auto) 0.2 K/mm3 (0.0-0.4); Eosinophils % (Auto) 3.1 % (0.0-4.3); Hematocrit 35.3 % (35.5-45.6); Hemoglobin 11.6 gm/dl (11.8-15.2); Lymphocytes # (Auto) 1.1 K/mm3 (1.2-5.4); Lymphocytes % (Auto) 13.1 % (13.4-35.0); Mean Corpuscular HGB Conc 33 % (32-34); Mean Corpuscular Volume 83 fl (84-94); Monocytes # (Auto) 1.1 K/mm3 (0.0-0.8); Platelet Count 320 K/mm3 (140-440); Red Blood Count 4.28 M/mm3 (3.65-5.03)
[2022-04-16 11:29] LABS: BUN/Creatinine Ratio 11; Blood Urea Nitrogen 9 mg/dL (9-20); Calcium 9.3 mg/dL (8.4-10.2); Hemolysis Index 3
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
[2022-04-16 12:51] LABS: Amphetamine Screen,Urine PRESUMPTIVE NEGATIVE; Benzodiazepines Screen,Urine PRESUMPTIVE NEGATIVE; Cannabinoid Screen,Urine PRESUMPTIVE NEGATIVE; Cocaine Screen,Urine PRESUMPTIVE NEGATIVE; Methadone Screen,Urine PRESUMPTIVE NEGATIVE; Opiate Screen,Urine PRESUMPTIVE NEGATIVE
[2022-04-16 13:11] LABS: Color,Urine Yellow (Yellow); Mucus,Urine FEW /HPF
--- NOTE | 2022-04-16 14:38 | Consultation ---
History of Present Illness - Reason for Consult Consult date: 04/16/22 Reason for consult: paranoia - History of Present Psychiatric Illness The patient was seen today. He has a history of bipolar and polysubstance abuse. He is irritable and reluctant to cooperate. The patient says he came to the hospital because he was "fidgety." I ask him what else was going on. The patient replied "I feel like people are following me." He says he has a history of bipolar and takes haldol and remeron. The patient says he takes his meds. He denies hallucinations. He denies homicidal thoughts. He says he was suicidal last night. I ask the patient was he still suicidal, he says "I'm straight. I'm good. You woke me up out of my sleep." PAST PSYCHIATRIC HISTORY Diagnoses: Bipolar ADHD Suicide attempts or Self-harm behavior: None reported Prior psychiatric hospitalizations: Yes Substance Abuse history: Cocaine, ecstasy recently Previous psychiatric medications tried: [facility] Outpatient treatment: n/a PAST MEDICAL HISTORY: none reported Family Psychiatric History: None reported or documented SOCIAL HISTORY Marital Status: single Living Arrangements: with family Employment Status: disabled Access to guns/weapons: none reported Education: 10th History of Abuse: none reported Legal History: none reported REVIEW OF SYSTEMS Constitutional: Negative for weight loss ENT: Negative for stridor Respiratory: Negative for cough or hemoptysis All other systems reviewed and are negative MENTAL STATUS EXAMINATION General Appearance and Behavior: Age appropriate, good hygiene, wearing appropriate clothes,sleeping, reluctant to cooperative Cooperation: reluctant to cooperate Psychomotor Behavior: unremarkable and within normal limits Mood: "I'm straight. I'm good." Affect and affective range: congruent with stated mood Thought Process: goal directed Thought Content: None Speech: Normal volume, Regular rate and rhythm Suicidal Ideation: last night Homicidal Ideation: Denies Hallucinations: Denies Delusions: Yes, paranoid Impulse Control: Limited Insight and Judgment: Limited insight and judgment Memory: Normal Attention: Divided attention impaired Orientation: Alert, oriented Assessment and Plan (3) Hx of Bipolar Disorder Treatment Plan Continue home meds Risks, benefits and alternatives of medications discussed with the patient, questions answered and consent obtained from patient. PSYCHOTHERAPY: Supportive psychotherapy provided MEDICAL: Per primary team DELIRIUM PRECAUTIONS: Please re-orient patient frequently, keep lights on during the day, and minimize benzodiazepines and opiates as these medications could worsen patient's confusion. VARNISH SUPERVISOR: Defer to primary The furniture salesperson to give all necessary outpatient resources DISPOSITION: Do not recommend acute psychiatric inpatient treatment FOLLOW-UP: Will sign off Thank you for the consult. Please contact with any questions and/or concerns. Medications and Allergies Allergies Allergy/AdvReac Type Severity Reaction Status Date / Time No Known Allergies Allergy Verified 04/16/22 10:10 Home Medications Medication Instructions Recorded Confirmed Last Taken Type QUEtiapine [SEROquel] 200 mg PO HS #60 05/23/19 06/22/20 Unknown Rx OLANzapine [ZyPREXA] 10 mg PO DAILY #30 tablet 06/23/20 Unknown Rx Valproic Acid [Depakene] 500 mg PO BID #60 capsule 06/23/[address] [DepaKOTE DR] 125 mg PO BID #60 tablet 09/28/21 Unknown Rx Doxepin [SINEquan] 10 mg PO QHS #30 capsule 09/28/21 Unknown Rx Quetiapine Fumarate [SEROquel] 50 mg PO BID #60 tab 09/28/21 Unknown Rx Mental Status Exam - Vital signs Last Vital Signs Temp 98.4 F 04/16/22 10:06 Pulse 98 H 04/16/22 10:06 Resp 18 04/16/22 10:06 BP 153/85 04/16/22 10:06 Pulse Ox 100 04/16/22 10:06 Results Result Diagrams: 04/16/22 10:40 04/16/22 10:40 Abnormal lab results 04/16/22 04/16/22 04/16/22 Range/Units 10:40 10:40 10:40 Hgb (11.8-15.2) gm/dl Hct (35.5-45.6) % MCV (84-94) fl MCH (28-32) pg RDW (13.2-15.2) % Lymph % (Auto) (13.4-35.0) % [place] % (Auto) (0.0-7.3) % Lymph # (Auto) (1.2-5.4) K/mm3 [place] # (Auto) (0.0-0.8) K/mm3 Carbon Dioxide 21 L (22-30) mmol/L Glucose 130 H (75-100) mg/dL Salicylates < 0.3 L (2.8-20.0) mg/dL Acetaminophen 5.0 L (10.0-30.0) ug/mL 04/16/22 Range/Units 10:40 Hgb 11.6 L (11.8-15.2) gm/dl Hct 35.3 L (35.5-45.6) % MCV 83 L (84-94) fl MCH 27 L (28-32) pg RDW 17.0 H (13.2-15.2) % Lymph % (Auto) 13.1 L (13.4-35.0) % [place] % (Auto) 13.0 H (0.0-7.3) % Lymph # (Auto) 1.1 L (1.2-5.4) K/mm3 [place] # (Auto) 1.1 H (0.0-0.8) K/mm3 Carbon Dioxide (22-30) mmol/L Glucose (75-100) mg/dL Salicylates (2.8-20.0) mg/dL Acetaminophen (10.0-30.0) ug/mL All other labs normal.
== END 2022-04-16 17:00 | disposition home or self-care (01) ==
LOC: ED 10:04
DX: R45.851 Suicidal ideations (principal); R45.850 Homicidal ideations; F31.9 Bipolar disorder, unspecified; J45.909 Unspecified asthma, uncomplicated; F17.200 Nicotine dependence, unspecified, uncomplicated; Z20.822 Contact with and (suspected) exposure to COVID-19
CPT/HCPCS: 36415; 80048; 80307; 81001; 85025; 99283; U0003; 80320; G0480